=== PATIENT | female | born 1990 | race Caucasian/White ===

== ENCOUNTER → 2016-03-03 | Outpatient (CLI) | payer OTHER | LOC: M SMT 13:51 | PROVIDERS: ATTEND Advanced Practice Midwife | DX: Z34.81 Encounter for supervision of other normal pregnancy, first trimester (principal) ==

== ENCOUNTER → 2016-04-02 | Outpatient (CLI) | payer OTHER | LOC: M SMT 13:31 | PROVIDERS: ATTEND Obstetrics & Gynecology | DX: Z36 Encounter for antenatal screening of mother (principal) ==

== ENCOUNTER → 2016-04-20 | Outpatient (CLI) | payer OTHER ==
--- NOTE | 2016-04-20 12:36 | REP ---
Clinical: Anatomical evaluation. Comparison: 01/28/2016 . Findings: Examination demonstrates a single live intrauterine in transverse presentation. motion is identified by technologist. Placenta is noted anteriorly and grade is zero without evidence for placenta previa or abruption. Amniotic fluid volume is normal. Cervix measures 4.6 cm in length and appears closed. No evidence for nuchal cord. Gestational age by LMP 20 weeks 1 day with FRANCIA 09/06/2016 . Gestational age by current measurements 20 weeks 3 days with FRANCIA 09/04/2016 . FHR equals 150 beats per minute. BPD 4.9 cm 20 weeks 6 days HC 18.3 cm 20 weeks 5-day AC 15.7 cm 20 weeks 6 days FL 3.4 cm 20 weeks 5 days HL 3.5 cm 21 weeks 6 days HC/AC ratio 1.17 Estimated weight 374 grams ( 70th percentile). Anatomical assessment demonstrates normal structures including cranium, choroid plexus, cavum, cerebellum/posterior fossa, facial features, lungs, four-chamber heart, diaphragm, stomach, cord insertion/three-vessel cord, bladder, spine, and extremities. Kidneys demonstrate pelviectasis measuring 4 mm diameter bilaterally. Impression: 1. Single live intrauterine in transverse lie demonstrating appropriate interval growth. 2. Mild renal pelviectasis bilaterally to a 4 mm and incomplete evaluation of the cardiac ventricular outflow tracts may warrant followup examination. Signed by Joshua Medina MD 04/20/2016 12:28 P
== END ==
LOC: M SMT 10:38
PROVIDERS: ATTEND Obstetrics & Gynecology
DX: Z34.82 Encounter for supervision of other normal pregnancy, second trimester (principal)

== ENCOUNTER → 2016-05-25 | Outpatient (CLI) | payer OTHER ==
--- NOTE | 2016-05-25 11:03 | REP ---
Clinical: Anatomical evaluation. Comparison: 04/20/2016 . Findings: Examination demonstrates a single live intrauterine in cephalic presentation. motion is identified by technologist. Placenta is noted anteriorly and grade one without evidence for placenta previa or abruption. Amniotic fluid volume is normal. Cervix measures 3.7 cm in length and appears closed. No evidence for nuchal cord. Gestational age by LMP 25 weeks 0 days with FRANCIA 09/07/2016 . Gestational age by current measurements 25 weeks 6 days with FRANCIA 09/01/2016 . FHR equals 152 beats per minute. Estimated weight 849 grams ( 65th percentile). Anatomical assessment demonstrates normal structures including cranium, choroid plexus, cavum, cerebellum/posterior fossa, facial features, lungs, four-chamber heart/ventricular outflow tracts, diaphragm, stomach, cord insertion/three-vessel cord, kidneys/bladder, spine, and extremities. Mild renal pelviectasis is within normal range for age. Impression: Single live intrauterine in cephalic presentation demonstrating appropriate interval growth. In conjunction with prior examination anatomical assessment is complete and normal. Signed by Joshua Medina MD 05/25/2016 10:55 A
== END ==
LOC: M RAD 09:44
PROVIDERS: ATTEND Specialist
DX: Z34.82 Encounter for supervision of other normal pregnancy, second trimester (principal); Z3A.25 25 weeks gestation of pregnancy

== ENCOUNTER → 2016-06-08 | Outpatient (CLI) | payer OTHER | LOC: M SMT 09:24 | PROVIDERS: ATTEND Advanced Practice Midwife | DX: Z34.83 Encounter for supervision of other normal pregnancy, third trimester (principal) ==

== ENCOUNTER 2016-07-20 17:22 | Emergency (ER) | payer OTHER ==
[~2016-07-20] VITALS: Ht 157.5 cm; Wt 72.6 kg
[2016-07-20 17:22] VITALS: BP 148/88
[2016-07-20] MEDS ORDERED: TRAM50TA2 PO (17:30)
[2016-07-20] MEDS ORDERED: ESCI20TA (17:31)
== END 2016-07-20 19:02 | disposition left against medical advice (07) ==
LOC: M ED 19:01
DX: S10.96XA Insect bite of unspecified part of neck, initial encounter (principal); Z53.21 Procedure and treatment not carried out due to patient leaving prior to being seen by health care provider

== ENCOUNTER → 2016-08-10 | Outpatient (REF) | payer OTHER ==
[~2016-08-10] MED LIST: ESCI20TA; TRAM50TA2 PO
== END ==
LOC: M LAB REF 17:16
PROVIDERS: ATTEND Specialist
DX: Z34.83 Encounter for supervision of other normal pregnancy, third trimester (principal)

== ENCOUNTER 2016-08-28 12:50 | Inpatient (IN) | payer OTHER ==
[~2016-08-28] VITALS: Ht 157.5 cm; Wt 74.0 kg
[2016-08-28] VITALS (9 sets, daily range): BP systolic 118–140; BP diastolic 60–83
[~2016-08-28 12:50] MED LIST changes: -ACET50TA PO; -BICITRA 30ML SOLN UDC PO ONE; -FERR325T3 PO; -MOTR200T44 PO; -OXYC1TAB23 PO; -PRENTAB9 PO
[2016-08-28] MEDS ORDERED: PRENTAB9 PO (13:11)
[2016-08-28] MEDS ORDERED: FERR325T3 PO (13:11)
[2016-08-28] MEDS ORDERED: LACTATED RINGER'S 1000 ML IV STA (13:31)
[2016-08-28] MEDS ORDERED: LR 1,000 ML IV SCH ×3 (14:00→20:15)
[2016-08-28 14:15] LABS: MEAN CORPUSCULAR HEMOGLOBIN 30.7 pg (27.0-33.0); MEAN CORPUSCULAR HGB CONC 33.8 g/dl (32.0-36.5); MEAN CORPUSCULAR VOLUME 90.8 fl (80.0-96.0); RED CELL DISTRIBUTION WIDTH 15.5 % (11.5-14.5); WHITE BLOOD COUNT 8.3 K/mm3 (4.0-10.0)
[2016-08-28] MEDS ORDERED: ACET50TA PO (14:26)
--- NOTE | 2016-08-28 17:00 | HPE ---
DATE OF ADMISSION: 08/28/2016 HISTORY OF PRESENT ILLNESS: A 26-year-old 2, para 1-0-0-1, estimated date of delivery 09/07/2016, presents at 38 weeks 5 days with contractions and abdominal pain since last night. Denies loss of fluid or bleeding. Fetus is active. Last normal menstrual period was unknown. Sonogram at eight weeks confirmed the date. Anatomy scan within normal limits. The patient has been scheduled for primary due to history of forceps and shoulder dystocia in 2015, and up until sonogram this evening, fetus has been breech. OBSTETRICAL HISTORY: 03/2015, viable female 7 pounds 10 ounces. Shoulder dystocia and forceps delivery. ALLERGIES: No known drug allergies. MEDICAL-SURGICAL HISTORY: Spinal injury with partial laminectomy L5-S1. FAMILY HISTORY: Cancer and diabetes. SOCIAL HISTORY: . Father of the baby present and supportive. Former smoker, quit two years ago. Denies alcohol, drugs or abuse negative sexually transmitted disease (STD) history. OBJECTIVE: Prepregnancy weight 128, total weight gain 17 pounds. A positive, antibody negative, rubella immune, venereal disease research laboratory ([facility]), hepatitis B, hepatitis C, HIV, gonorrhea and Chlamydia all negative. Quad screen was negative. One-hour glucose was 91 and group B strep is positive. Vital signs are stable. Heart rate is regular. Moderately uncomfortable, breathing with contractions that are irregular 2-4 minutes apart. heart is 155, moderate variability with accelerations. Fetus is very active. Bedside sonogram confirms vertex presentation. Sterile vaginal exam 3 cm, 60%, -3, changed from initial exam of 1 cm, 50%, -3 and far posterior. ASSESSMENT: Multipara at term, active labor, reassuring status. Poor obstetric history. PLAN: Admit per consult Dr. Michaels. Reviewed options for delivery now to fetus is vertex. The patient is requesting primary as planned due to history of dystocia. Maintain nothing by mouth. MTDD
[2016-08-28] MEDS ORDERED: LR 800 ML IV SCH (17:15)
[2016-08-28] MEDS ORDERED: BICITRA 30ML SOLN UDC PO ONE (17:45)
[2016-08-28] MEDS ORDERED: NALBUPHINE HCL 10 MG/ML AMP (J2300) IV PRN ×2 (19:12→20:30)
[2016-08-28] MEDS ORDERED: ONDANSETRON 4MG/2ML VIAL (J2405) IV PRN ×3 (19:12→20:30)
[2016-08-28] MEDS ORDERED: NALOXONE INJ 0.4 MG/1 ML VIAL (J2310) IV PRN ×2 (19:12)
[2016-08-28] MEDS ORDERED: METOCLOPRAMIDE INJ 10MG/2ML VIAL (J2765) IV PRN (19:12)
[2016-08-28] MEDS ORDERED: MEASLES,MUMPS,RUBELLA VACCINE INJ (MMR-II) (90707) SC SCH (20:00)
[2016-08-28] MEDS ORDERED: PERCOCET 5MG/325MG TAB PO PRN (20:00)
[2016-08-28] MEDS ORDERED: RHOGAM 300 MCG (1500 IU) INJ (J2790) IM SCH (20:00)
[2016-08-28] MEDS ORDERED: OXYTOCIN DRIP 30 UNITS in APPROPRIATE DILUENT 1 EA IV ONE (20:15)
[2016-08-28] MEDS ORDERED: fentaNYL 100 MCG/2 ML INJECTION (J3010) As Ordered ONE ×2 (20:23→21:35)
[2016-08-28] MEDS: KETOROLAC 30 MG/ML VIAL (J1885) IV SCH (20:25)
[2016-08-28] MEDS ORDERED: fentaNYL 100 MCG/2 ML INJECTION (J3010) IV PRN ×2 (20:30→21:45)
[2016-08-28] MEDS ORDERED: KETOROLAC 30 MG/ML VIAL (J1885) IV PRN (20:30)
[2016-08-28] MEDS ORDERED: MEPERIDINE INJ 25 MG/ML VIAL (J2175) IV PRN (20:30)
--- NOTE | 2016-08-28 21:29 | RO ---
DATE OF PROCEDURE: 08/28/2016 PREOPERATIVE DIAGNOSIS: 38-4/7 weeks gestation. Active labor. History of prior shoulder dystocia with traumatic delivery in the past. POSTOPERATIVE DIAGNOSIS: 38-4/7 weeks gestation. Active labor. History of prior shoulder dystocia with traumatic delivery in the past. PROCEDURE: Primary low transverse section. SURGEON: Reinier Michaels MD DINING SERVER: Sarah Ivey CNM ANESTHESIA: Spinal. ESTIMATED BLOOD LOSS: 500 mL. FINDINGS: 8 pound 5 ounce female , Apgars 9 and 10. Light meconium stained fluid. Normal fallopian tubes and ovaries. 3 cm posterior uterine fibroid. Small 1 cm anterior fundal fibroid. OPERATIVE SUMMARY: The patient was taken to the operating room where spinal anesthesia was induced. She was prepped and draped in a sterile fashion in supine position. A Ramirez catheter was placed. A Pfannenstiel skin incision was made with a scalpel and carried through to the fascia. The fascia was nicked and extended. The peritoneal cavity was entered. Bladder flap was created. A curvilinear incision was made in the lower uterine segment until bulging membranes were noted. Membranes were ruptured with light meconium stained fluid. The infant was delivered from the vertex position without difficulty. The cord was doubly clamped and cut. The was handed off to the awaiting nurses. The placenta was expressed. The uterus was exteriorized and cleared of clots and debris. The uterine incision was closed with #0 Vicryl in a running locked fashion. A second imbricating layer of #0 Vicryl was placed. The uterus was placed back in the abdominal cavity. The peritoneum was closed with #2-0 Vicryl in a running fashion. The fascia was closed with #0 Vicryl. The subcutaneous tissue was irrigated and the skin was closed with #4-0 Monocryl subcuticular sutures. Sponge, instrument and needle counts were correct.
[2016-08-28] MEDS: PERCOCET 5MG/325MG TAB PO PRN (21:40)
[2016-08-29] VITALS (8 sets, daily range): BP systolic 110–144; BP diastolic 57–69
[2016-08-29] MEDS: PERCOCET 5MG/325MG TAB PO PRN ×6 (01:33→21:06)
[2016-08-29] MEDS: KETOROLAC 30 MG/ML VIAL (J1885) IV SCH ×3 (03:03→15:48)
[2016-08-29 06:35] LABS: MEAN CORPUSCULAR HEMOGLOBIN 30.2 pg (27.0-33.0); MEAN CORPUSCULAR HGB CONC 33.3 g/dl (32.0-36.5); MEAN CORPUSCULAR VOLUME 90.7 fl (80.0-96.0); RED CELL DISTRIBUTION WIDTH 15.6 % (11.5-14.5); WHITE BLOOD COUNT 9.3 K/mm3 (4.0-10.0)
[2016-08-29] MEDS: PRENATAL VITAMINS CHEWABLE TABLET PO SCH (08:02)
[2016-08-29] MEDS: DOCUSATE SODIUM 100 MG CAP PO PRN (08:02)
[2016-08-29] MEDS: ESCITALOPRAM OXALATE 10 MG TAB (LEXAPRO) PO SCH (15:59)
[2016-08-29] MEDS ORDERED: OXYC1TAB23 PO (21:45)
[2016-08-29] MEDS: IBUPROFEN 800 MG TAB PO SCH (22:39)
[2016-08-30] MEDS: PERCOCET 5MG/325MG TAB PO PRN ×4 (01:17→13:10)
[2016-08-30 05:55] VITALS: BP 119/59
[2016-08-30] MEDS: IBUPROFEN 800 MG TAB PO SCH (06:10)
--- NOTE | 2016-08-30 08:33 | DSES ---
DATE OF ADMISSION: 08/28/2016 DATE OF DISCHARGE: 08/30/2016 HISTORY: A 26-year-old 2, para 1 female 38 and 4/7 weeks gestation by 8 week ultrasound presents with regular contractions every 3 to 5 minutes that last several hours. She made cervical change from 1 to 3 cm and was diagnosed in labor. She is planning a primary section due to history of traumatic first with perineal trauma. HOSPITAL COURSE: On 08/28/2016 the patient underwent primary low transverse section, for a female infant without complication. Her postoperative course was unremarkable. She adequately returned to bladder and bowel function. She is deemed stable for discharge on postoperative day #2. ADMISSION DIAGNOSIS: 38+ weeks. Labor. DISCHARGE DIAGNOSIS: Delivered. PROCEDURE: Primary low transverse section. DISPOSITION: The patient will followup with Dr. Michaels in 2 weeks. Instructions reviewed.
[2016-08-30] MEDS ORDERED: MOTR200T44 PO (08:59)
[2016-08-30] MEDS: ESCITALOPRAM OXALATE 10 MG TAB (LEXAPRO) PO SCH (09:11)
[2016-08-30] MEDS: DOCUSATE SODIUM 100 MG CAP PO PRN (09:11)
[2016-08-30] MEDS: PRENATAL VITAMINS CHEWABLE TABLET PO SCH (09:11)
== END 2016-08-30 14:10 | disposition home or self-care (01) | DRG 766 ==
LOC: M LDO 12:50 → M LDI 16:23 → M OBS 22:23
PROVIDERS: ADMIT Advanced Practice Midwife; ATTEND Specialist
PROC: 10D00Z1 Extraction of Products of Conception, Low, Open Approach (ICD-10-PCS; principal; 2016-08-28 09:39)
DX: O99.89 Other specified diseases and conditions complicating pregnancy, childbirth and the puerperium (principal); O99.824 Streptococcus B carrier state complicating childbirth; Z3A.38 38 weeks gestation of pregnancy; O75.82 Onset (spontaneous) of labor after 37 completed weeks of gestation but before 39 completed weeks gestation, with delivery by (planned) cesarean section; Z87.59 Personal history of other complications of pregnancy, childbirth and the puerperium; Z37.0 Single live birth

== ENCOUNTER → 2016-08-28 | Outpatient (REF) | payer OTHER ==
[~2016-08-28] MED LIST changes: +ACET50TA PO; +BICITRA 30ML SOLN UDC PO ONE; -ESCI20TA; +ESCI20TA PO; +FERR325T3 PO; +MOTR200T44 PO; +OXYC1TAB23 PO; +PRENTAB9 PO
== END ==
LOC: M LAB REF 13:27
PROVIDERS: ATTEND Advanced Practice Midwife
DX: Z36 Encounter for antenatal screening of mother (principal); Z34.83 Encounter for supervision of other normal pregnancy, third trimester

== ENCOUNTER → 2017-01-25 | Outpatient (CLI) | payer OTHER ==
[~2017-01-25] MED LIST changes: +ACET50TA PO; +FERR325T3 PO; +MOTR200T44 PO; +OXYC1TAB23 PO; +PRENTAB9 PO
[2017-01-25 19:34] LABS: BASO % 0.5 % (0.0-1.0); EOS # 0.2 10^3/uL (0.0-0.50); EOS % 1.9 % (0.0-3.0); IMMATURE GRANULOCYTE % 0.2 % (0-0); LYMPH # 2.8 10^3/uL (1.5-6.5); LYMPH % 32.6 % (24.0-44.0); MEAN CORPUSCULAR HEMOGLOBIN 29.8 pg (27.0-33.0); MEAN CORPUSCULAR HGB CONC 32.2 g/dl (32.0-36.5); MEAN CORPUSCULAR VOLUME 92.7 fl (80.0-96.0); MONO # 0.5 10^3/uL (0.0-0.8); MONO % 6.1 % (0.0-5.0); NEUTROPHILS # 5.1 10^3/uL (1.8-7.7); NEUTROPHILS % 58.7 % (36.0-66.0); PLATELET COUNT, AUTOMATED 266 10^3/uL (150-450); RED CELL DISTRIBUTION WIDTH 13.6 % (11.5-14.5); WHITE BLOOD COUNT 8.7 10^3/uL (4.0-10.0)
[2017-01-25 19:51] LABS: FREE T4 0.82 NG/DL (0.76-1.46)
== END ==
LOC: M SMT 14:08
PROVIDERS: ATTEND Family Medicine
DX: Z13.0 Encounter for screening for diseases of the blood and blood-forming organs and certain disorders involving the immune mechanism (principal); Z13.29 Encounter for screening for other suspected endocrine disorder; F33.1 Major depressive disorder, recurrent, moderate